=== PATIENT | male | born 1960 | race Caucasian/White ===

== ENCOUNTER → 2023-06-23 07:58 | Outpatient (CLI) | payer OTHER, SELFPAY ==
--- NOTE | 2023-06-23 08:06 | DI.ECHO.S_ITS ---
[facility]---------+ [facility] +---------+ : : [address] : [address] : : : : [id number] : : : : Phone: [phone]---------+ Echocardiogram Report + + :Name: LAURA DANIEL Study Date: 06/23/2023 Height: 72 in : :[facility] ReadingLocation: Weight: 187 lb: : Gender: Male BSA: 2.1 m2 : :: 1960 Age: 63 yrs BP: 90/68 mmHg: :Reason For Study: CHEST PAIN : :Ordering Physician: EMANUEL, : :ALEXIS Performed By: Michelle Mg : :Referring: ALEXIS ERIC : + + Interpretation Summary 1) Normal left ventricular size, wall motion, and systolic function (EF 55- 60%). 2) The right ventricle is mildly dilated. The right ventricular systolic function is normal. 3) No significant valvular abnormalities. 4) No prior Echo available for comparison. Procedure: A two-dimensional transthoracic echocardiogram with color flow and Doppler was performed. The study quality was technically adequate. There is no prior echocardiogram noted for this patient. The patient was in sinus rhythm with heart rates between 58-75 bpm during the exam. Left Ventricle: The left ventricle is normal in size and wall thickness. The ejection fraction is estimated to be 55-60%. Diastolic function could not be accurately assessed due to atrial fibrillation. Right Ventricle: The right ventricle is mildly dilated. The right ventricular systolic function is normal. Atria: The left atrium is mildly dilated. Right atrial size is normal. There is no Doppler evidence for an interatrial shunt. Mitral Valve: The mitral valve is normal in structure and function. There is mild mitral regurgitation. Aortic Valve: The aortic valve is trileaflet. The aortic valve opens well. There is no aortic valve stenosis. No aortic regurgitation is present. Tricuspid Valve: The tricuspid valve is normal in structure and function. There is mild tricuspid regurgitation. The right ventricular systolic pressure is estimated to be at least 19 mmHg based on an estimated right atrial pressure of 3 mm Hg. Pulmonic Valve: The pulmonic valve leaflets are thin and pliable; valve motion is normal. There is mild pulmonic regurgitation. Great Vessels: The aortic root is normal size. The dimensions of the ascending aorta are normal. The IVC is of normal diameter and collapses greater than 50% with a sniff. This suggests a low right atrial pressure of 3 mm Hg. Pericardium/ Pleura There is no pericardial effusion. There is no pleural effusion. MMode/2D Measurements & Calculations LVIDd: 4.3 cm LVOT diam: 2.4 cm LVIDs: 3.0 cm Ao root diam: 3.4 cm FS: 32.0 % asc Aorta Diam: 3.6 cm IVSd: 0.86 cm Ao Arch Diam (Prox Trans): 3.3 cm LVPWd: 0.88 cm LV pollack. diameter/BSA (cm/m^2): 2.1 LV sys. diameter/BSA (cm/m^2): 1.4 LA A2 area: 22.8 cm2 RA long axis: 5.6 cm LA A4 area: 19.6 cm2 RA area: 20.2 cm2 LA length (vol): 5.0 cm RA vol: 62.5 ml LA vol: 75.5 ml RA : 30.2 ml/m2 LA vol index: 36.5 ml/m2 IVC diam: 1.8 cm RVD1 (basal): 4.1 cm RVD2 (mid): 3.2 cm TAPSE: 1.9 cm Doppler Measurements & Calculations Ao V2 max: 78.1 cm/sec LVOT Max Antonino: 75.6 cm/sec Ao V2 mean: 54.1 cm/sec LV V1 max P.3 mmHg Ao max P.4 mmHg LV V1 VTI: 15.2 cm Ao mean P.3 mmHg DEMIAN(I,D): 4.4 cm2 Ao V2 VTI: 15.5 cm DEMIAN(V,D): 4.3 cm2 sev ratio: 0.99 DEMIAN indexed to BSA (cm^2/m^2): 2.1 MV E max antonino: 80.0 cm/sec TR max antonino: 203.2 cm/sec MV A max antonino: 1.7 cm/sec TR max P.5 mmHg MV E/A: 47.3 PA V2 max: 84.1 cm/sec Med Peak E' Antonino: 9.0 cm/sec PA V2 mean: 59.4 cm/sec E/E' med: 8.9 PA mean P.6 mmHg Lat Peak E' Antonino: 12.1 cm/sec PA pr(Accel): 39.6 mmHg E/E' lat: 6.6 E/e' average: 7.8 MV dec time: 0.17 sec SVLVOT): 68.4 ml Reading Physician:04:05 PM
--- NOTE | 2023-06-24 09:20 | DI.NM.S_ITS ---
DATE OF SERVICE: 06/23/2023 PROCEDURE: Exercise stress test. INDICATIONS: Atrial fibrillation. CARDIAC STRESS: Patient underwent exercise stress test under the supervision of an attending staff. The patient walked on Lionel protocol for 10 minutes and 15 seconds, achieved 12.8 METS of workload and NONA - 22%. Resting blood pressure 100/70 mmHg. Peak blood pressure 144/82 mmHg. Baseline rhythm Afib with ventricular rate, around 56, with some concave diffuse ST changes suggestive of repolarization changes. At peak exercise, there were 1.8 to [address] depression as well as some upsloping ST depression involving the inferior leads and leads V4 to V6, which got resolved to baseline within 1 minute in recovery. The patient had mild chest discomfort in the final stage and resolved within 2-3 minutes into the recovery. CONCLUSION: Exercise stress is an abnormal stress test with inducible ischemia at peak exercise with maximum heart rate 195 with atrial fibrillation with fast ventricular rate. The patient has persistent atrial fibrillation. Chest discomfort at final stage, which got resolved within 2-3 minutes into the recovery. Normal blood pressure response. Excellent exercise tolerance. 12.8 metabolic equivalents of workload. No ventricular tachycardia. Correlate clinically and consider repeating exercise stress test with imaging modality, like stress echo or exercise perfusion study for further coronary artery disease diagnosis and risk stratification or consider left heart catheterization. Dandre Huff - JOSE/yonas/JETT doc#: [id number]/job#: [id number] dd: 06/23/2023 16:55:00 dt: 06/23/2023 22:10:00 DICTATING MD/COPIES TO: Robert Leonardo MD; Lynette Eric MD COPIES MNE: MANUEL;
== END ==
PROVIDERS: PCP Family Medicine Sports Medicine; Referring Provider Internal Medicine Cardiovascular Disease; Visit Provider Internal Medicine Cardiovascular Disease
DX: I48.19 Other persistent atrial fibrillation (principal); I08.1 Rheumatic disorders of both mitral and tricuspid valves; R07.89 Other chest pain; R94.39 Abnormal result of other cardiovascular function study
CPT/HCPCS: 93017; 93306